=== PATIENT | male | born 1995 | race Caucasian/White ===

== ENCOUNTER → 2016-11-28 | Outpatient (CLI) | payer BC ==
[2016-11-28 09:16] LABS: HEMOGLOBIN 15.9 gm/dl (14.0-17.5); RED BLOOD COUNT 5.17 M/UL (4.20-5.50); WHITE BLOOD COUNT 4.6 K/UL (4.5-11.0)
[2016-11-28 09:31] LABS: BUN/CREATININE RATIO 16 (0-10)
== END ==
LOC: LAB 08:38
PROVIDERS: Family Medicine
DX: M06.9 Rheumatoid arthritis, unspecified (principal); I10 Essential (primary) hypertension
CPT/HCPCS: 36415; 80053; 80061; 81001; 85025; 86141; 86200; 86431

== ENCOUNTER → 2020-10-08 | Outpatient (CLI) | payer OTHER | LOC: RAD 09:52 | DX: R07.89 Other chest pain (principal); R05 Cough | CPT/HCPCS: 71046; 93005 ==